=== PATIENT | male | born 1950 | race Caucasian/White ===

== ENCOUNTER 2017-12-16 08:03 | Day surgery (SDC) | payer OTHER ==
[2017-12-07 18:19] VITALS: BMI 21.4
--- NOTE | 2017-12-16 07:30 | HP ---
History & Physical Update - History History: No Change - Physical Physical: No Change - Assessment Assessment: No Change - Plan Plan: No Change (Initial H&P completed 11/25/17. No new complaints or medications. C/o LBP with radiation to RLE)
[2017-12-16] MEDS ORDERED: CEFAZOLIN 1 GM in DEXTROSE 5%-WATER - 100 ML IVPB ONE (08:55)
[2017-12-16] MEDS ORDERED: oxyCODONE HCL 10 MG SUSTAINED ACTING TABLET PO STA (08:55)
[2017-12-16] MEDS ORDERED: MIDAZOLAM HCL 2 MG/2 ML SINGLE DOSE VIAL ONE ×2 (10:48→11:38)
[2017-12-16] MEDS ORDERED: BUPIVACAINE HCL/PF (5 MG/ML) 30 ML VIAL IJ ONE (10:49)
[2017-12-16] MEDS ORDERED: THROMBIN (BOVINE) 5,000 UNIT VIAL TP ONE ×2 (11:07→11:53)
[2017-12-16] MEDS ORDERED: LIDOCAINE 1%/EPI 1:100000 (20 ML MULTI DOSE VIAL) ONE (11:07)
[2017-12-16] MEDS ORDERED: methylPREDNISolone ACET (DEPO) 40 MG/1 ML VIAL ONE (11:07)
[2017-12-16] MEDS ORDERED: LIDOCAINE 1%/EPI 1:100000 (50 ML MULTI DOSE VIAL) INF ONE (11:30)
[2017-12-16] MEDS ORDERED: DEXAMETHASONE SOD PHOSPHATE 4 MG/1 ML VIAL ONE (11:39)
[2017-12-16] MEDS ORDERED: ONDANSETRON 4 MG/2 ML VIAL ONE (11:39)
[2017-12-16] MEDS ORDERED: ceFAZolin SODIUM 1 GM VIAL ONE (11:39)
[2017-12-16] MEDS ORDERED: GELATIN SPONGE,ABSORBABLE 1 GM PACKET TP ONE (11:54)
[2017-12-16] MEDS ORDERED: methylPREDNISolone ACET (DEPO) 40 MG/1 ML VIAL IM ONE (12:27)
--- NOTE | 2017-12-16 12:46 | OP ---
Operative Note - Note: Operative Date: 12/16/17 Pre-Operative Diagnosis: L4-S1 spinal stenosis with radiculopathy Operation: L4-S1 bilateral laminectomy Post-Operative Diagnosis: Same as Pre-op Surgeon: Ramirez Mckenna Spray Mixer: Alvin Crawford Anesthesiologist/PMO BUSINESS ANALYST: Bart Crespo Anesthesia: Spinal Estimated Blood Loss (mls): 10 Fluid Volume Replaced (mls): 700 Operative Report Dictated: Yes
[2017-12-16] MEDS ORDERED: PROMETHAZINE HCL 25 MG/1 ML VIAL IVPB PRN (12:47)
[2017-12-16] MEDS ORDERED: oxyCODONE HCL 5 MG TABLET PO PRN ×2 (12:47)
[2017-12-16] MEDS ORDERED: ONDANSETRON 4 MG/2 ML VIAL IVPUSH PRN (12:47)
--- NOTE | 2017-12-16 12:47 | SURG ---
Surgery Wedger And Gluer Note Wedger And Gluer: Alvin Crawford PA-C Date of Service: 12/16/17 Diagnosis: L4-S1 spinal stenosis with radiculopathy Procedure: L4-S1 Bilateral laminectomy I was present for the entirety of the operative procedure. For further detail, please refer to operative report. Visit type - Case Type Case Type: Scheduled - New patient This patient is new to me today: Yes Date on this admission: 12/16/17
--- NOTE | 2017-12-16 14:14 | OP ---
DATE OF OPERATION: 12/16/2017 PREOPERATIVE DIAGNOSIS: Spinal stenosis, L4-5, L5-S1. POSTOPERATIVE DIAGNOSIS: Spinal stenosis, L4-5, L5-S1. PROCEDURE PERFORMED: Laminectomy, L4-5 and L5-S1. SURGEON: Ramirez Mckenna MD TUBULAR PRODUCTS FABRICATOR: LEILA Hidalgo ESTIMATED BLOOD LOSS: 50 mL. IV FLUIDS: Per Anesthesia. ANESTHESIA: Spinal/TLIP. COMPLICATIONS: There were none. DISPOSITION: Patient brought to the PACU in stable condition. INDICATION FOR SURGERY: The patient is a 67-year-old gentleman who has been suffering from pain from his back down his leg. X-rays and MRI were completed, which showed that he had spinal stenosis from L4 down to S1. He had gone through an exhaustive course of treatment for this, which included medications, physical therapy, as well as injections. Unfortunately, his pain continued to persist despite all this. At this point, risks, benefits, and alternatives were discussed and the patient consented to surgery. OPERATIVE NOTE: The patient was brought to the operating room by the anesthesia staff. After appropriate patient identification was performed, spinal anesthesia was given. A TLIP block was also given. The patient was able to position himself prone onto the OR table, with all areas of bony prominences well padded. At this time, 2 needles were placed into his back to cipriano off the L4 to S1 levels. X-rays taken to confirm this was correct. [place] removed and 10 mL of lidocaine with epinephrine was injected into his back at this time. His back was prepped and draped in a sterile manner. At this point, timeout was completed. An incision was made from the top of L4 down to the bottom of S1. Dissection was carried down to the fascia. The fascia was split open at this time. Appropriate retractors were then placed in. A spinal needle was placed onto the lamina of L5. X-rays taken to confirm this was correct. The needle was removed and the interspinous ligament at L4-5 and L5-S1 were removed. The spinous process of L5 was removed. The remaining portion of the L5 lamina were removed. The flavum was identified. It was removed. A complete decompression was performed such that, by the end of the procedure, the L5-S1 nerve roots appeared to be well decompressed. All bleeding was well controlled at this time. Steroid was placed over the nerve root, FloSeal was placed over that. The fascia was closed with a number 1 Vicryl suture. The subcutaneous tissues were closed with 2-0 Vicryl suture. Skin was closed with 3-0 Monocryl suture. Dermabond was applied, Steri-Strips were applied, a sterile dressing was applied. The patient was placed supine on the OR bed and brought to the PACU in stable condition. Isaac FREEMAN/[id number]
[2017-12-16 15:12] VITALS: BP 122/67; PULSE 51; TEMP 97.8
== END 2017-12-16 14:40 | disposition home or self-care (01) ==
LOC: FASU 08:03
PROVIDERS: ATTEND Orthopaedic Surgery Orthopaedic Surgery of the Spine
PROC: 01NB0ZZ Release Lumbar Nerve, Open Approach (ICD-10-PCS; principal; 2017-12-16 11:49)
DX: M48.061 Spinal stenosis, lumbar region without neurogenic claudication (principal); M48.07 Spinal stenosis, lumbosacral region
CPT/HCPCS: 72100-TC-FY; 94760

== ENCOUNTER 2017-12-20 10:59 | Emergency (ER) | payer OTHER ==
[2017-12-20] MEDS ORDERED: KETOROLAC TROMETHAMINE 30 MG/1 ML VIAL IVPUSH ONE (11:08)
[2017-12-20] MEDS ORDERED: METOCLOPRAMIDE HCL INJECTION 10 MG/2 ML VIAL IVPUSH ONE (11:08)
[2017-12-20] MEDS ORDERED: SODIUM CHLORIDE 500 ML IV STA (11:09)
[2017-12-20] MEDS ORDERED: KETOROLAC TROMETHAMINE 30 MG/1 ML VIAL ONE (11:21)
--- NOTE | 2017-12-20 11:22 | PDOC ---
History of Present Illness - General Chief Complaint: Headache Stated Complaint: headache Time Seen by Provider: 12/20/17 11:07 - History of Present Illness Initial Comments: 12/20/17 12:12 The patient is a 67 year old male with a history of spinal stenosis who presents for evaluation of headache. The patient is accompanied by family who assist in providing the history. They note that the patient had a recent lamenectomy 4 days ago. They state that the patient had no pain after the surgery, however, the patient developed a pressure like headache 3 days ago that has been persistent with associated photophobia, phonophobia, nausea, and one episode of non-bilious, non-bloody vomiting prompting his presentation to the ED for further evaluation. The patient otherwise denies fevers, chills, SOB , chest pain, abdominal pain, numbness, tingling, weakness, or changes with urination or bowel movements. Past History - Past Medical History Allergies/Adverse Reactions: Allergies Allergy/AdvReac Type Severity Reaction Status Date / Time No Known Allergies Allergy Verified 12/20/17 11:14 Home Medications: Ambulatory Orders Diazepam [Valium] 2 mg PO TID PRN #24 tablet MDD 3 12/16/17 Hydrocodone/Acetaminophen [Vicodin 5-300 mg Tablet] 1 each PO Q6H PRN #8 tablet MDD 4 12/16/17 Tramadol HCl 50 mg PO Q6H PRN #30 tablet MDD 4 12/16/17 Metoclopramide HCl [Reglan -] 10 mg PO TID #21 tablet 12/20/17 Anemia: No Asthma: No Cancer: No Cardiac Disorders: No CVA: No COPD: No CHF: No DVT: No Dementia: No Diabetes: No GI Disorders: No Disorders: No HTN: No Hypercholesterolemia: No Liver Disease: No Seizures: No Thyroid Disease: No - Surgical History Abdominal Surgery: Yes (hernia repair) Appendectomy: No Cardiac Surgery: No Cholecystectomy: No Lung Surgery: No Neurologic Surgery: No Orthopedic Surgery: No - Suicide/Smoking/Psychosocial Hx Smoking History: Never smoked Have you smoked in the past 12 months: No Hx Alcohol Use: No Drug/Substance Use Hx: No Substance Use Type: None Review of Systems - Review of Systems Comments:: 12/20/17 12:15 Constitutional: No fevers, chills, fatigue, malaise HEENT: No Rhinorrhea, nasal congestion, visual changes Cardiovascular: No chest pain, syncope, palpitations, lightheadedness Respiratory: No Cough, SOB, Hemoptysis, Gastrointestinal: Nausea, vomiting. No Abdominal pain, Constipation, Diarrhea, Melena Genitourinary: No Dysuria, Frequency, Urgency, Hesitancy, Hematuria, Flank pain Musculoskeletal: No Myalgia, arthralgia Skin: No rashes, itching, bruising, pallor Neurologic: Headache. Photophobia, Phonophobia. No Dizziness, Numbness, Weakness , or Tingling Psychiatric: No Hallucinations. No SI or HI *Physical Exam - Vital Signs Last Vital Signs Temp Pulse Resp BP Pulse Ox 0/0 12/20/17 10:59 - Physical Exam Comments: 12/20/17 12:15 General Appearance: Nourished. No Apparent Distress HEENT: EOMI, TAPAN. No Pharyngeal Erythema, Tonsillar Exudate, Tonsillar Erythema Neck: No Cervical Lymphadenopathy Respiratory/Chest: Lungs Clear, Normal Breath Sounds. No Crackles, Rales, Rhonchi, Wheezing Cardiovascular: Regular Rhythm, Regular Rate. No Murmur, Gallops, Rubs Gastrointestinal/Abdominal: Normal Bowel Sounds, Soft. No Guarding, Rebound, Tenderness Musculoskeletal: No CVA Tenderness Extremity: Normal Capillary Refill Integumentary: Normal Color, Dry, Warm Neurologic: insurance sales producer II-XII NML intact, Fully Oriented, Alert, Normal Mood/Affect, Normal Response, Motor Strength 5/5. Medical Decision Making - Medical Decision Making 12/20/17 12:17 The patient is a 67 year old male with a history of spinal stenosis who presents for evaluation of headache. Dr. Ward the patient's surgeon evaluated the patient here in the ED and believes that a dural tear is unlikely. Given the patient's history and physical exam, we will obtain a head CT to evaluate further. We will treat the patient with iv fluids, benadryl, reglan, toradol in the meantime and continue to monitor and reassess while here in the ED. 12/20/17 12:[address] is unremarkable as read by our radiologist. The patient reports significant improvement in his symptoms. We are comfortable discharging the patient home with primary care provider follow up. We discussed the results, plan, and return precautions with the patient and his family who voiced understanding and is agreeable with the plan. The patient is ambulating without difficulty. *DC/Admit/Observation/Transfer Diagnosis at time of Disposition: Headache Qualifiers: Headache type: unspecified Headache chronicity pattern: unspecified pattern Intractability: not intractable Qualified Code(s): R51 - Headache - Discharge Dispostion Disposition: HOME Condition at time of disposition: Stable - Prescriptions Prescriptions: Metoclopramide HCl [Reglan -] 10 mg PO TID #21 tablet - Referrals - Patient Instructions Printed Discharge Instructions: DI for Headache Additional Instructions: Please return to the ER if you experience concerning or worsening symptoms including worsening headache, fevers, chills, weakness, chest pain. Your Head CT results were normal here in the ER. We have sent a prescription to your pharmacy for reglan that you may use should you experience nausea vomiting or headache. Please also use your percocet as needed to manage your pain. Please call to schedule a follow up appointment with your primary care provider within 2-3 days to discuss your ER visit and further management of your symptoms. - Post Discharge Activity
[2017-12-20 11:47] VITALS: TEMP 98.4; BMI 20.2
[2017-12-20 12:57] VITALS: BP 120/76; PULSE 52
--- NOTE | 2017-12-20 14:02 | PDOC ---
Attending Attestation - Resident Resident Name: VannesaGaldino - ED Attending Attestation I have performed the following: I have examined & evaluated the patient, The case was reviewed & discussed with the resident, I agree w/resident's findings & plan - HPI HPI: 12/20/17 14:02 Rota 67 YOM with h/o spinal stenosis s/p L4-S1 bilateral laminectomy on 12/16/17 presenting with headache, nausea and photosensitivity x 2-3 days, with one episode of NBNB emesis. no fever or chills. surgery uncomplicated, no back pain or urinary/abdominal sx. 12/20/17 14:03 - Physicial Exam PE: 12/20/17 14:06 NAD, well appearing, MMM, nl conjunctiva, anicteric; neck supple. lungs clear, RRR, abdomen soft nontender. back midline laminectomy scar, c/d/i with topical strips and dressings in place. HO[place] x4, no focal neuro deficits. strength in all extrem 5/5, SILT. CN II-XII intact. gait stable. No peripheral edema. normal color for ethnicity, WWP. no purulence or drainage or erythema at site of incision. - Medical Decision Making 12/20/17 14:03 Rota 67 YOM with h/o spinal stenosis s/p L4-S1 bilateral laminectomy on 12/16/17 presenting with headache, nausea and photosensitivity x 2-3 days, with one episode of NBNB emesis. no fever or chills. surgery uncomplicated, no back pain or urinary/abdominal sx. DDx. dural tear, CSF leak, intra cranial mass, CVA< dehydration, migraine, tension headache, cluster headache. doubt IRRIGATING PUMP OPERATOR infection. no meningeal signs. vitals wnl, no fevers. given toradol, benadryl, reglan and IVF with relief. no focal neuro deficits, ambulatory and much improved. CT head neg for bleed or mass. laminectomy site c/d/i with topical steri strips and dressings in place, no drainage. seen by primary neurosurgeon here, agrees with plan. Rx reglan prn nausea and headache/ may also take percocet for back pain, which may be precipitant. given IVF in case of dural leak here. otherwise doubt IRRIGATING PUMP OPERATOR infection or CVA with neg Head CT and reassuring reevaluation. family comfortable with plan outlined, adequate rest and hydration encouraged and pain control. Pt to be discharged in stable condition. Patient and family made aware of impression and plan, return precautions discussed (including but not limited to worsening pain or symptoms), fevers, or signs of infection, chest pain, respiratory distress, inability to tolerate oral intake, dehydration, syncope, or neurologic changes). Follow up with PMD and/or specialist as recommended, follow up information provided, take medications as instructed for duration of time. continue with supportive care, avoid triggers and precipitants. All questions answered to patient's satisfaction and expressed understanding and comfort with this. 12/20/17 14:07
== END 2017-12-20 12:57 | disposition home or self-care (01) ==
LOC: FER 10:59
PROC: 3E033GC Introduction of Other Therapeutic Substance into Peripheral Vein, Percutaneous Approach (ICD-10-PCS; principal; 2017-12-20)
PROC: 3E0333Z Introduction of Anti-inflammatory into Peripheral Vein, Percutaneous Approach (ICD-10-PCS; 2017-12-20)
PROC: 3E0337Z Introduction of Electrolytic and Water Balance Substance into Peripheral Vein, Percutaneous Approach (ICD-10-PCS; 2017-12-20)
DX: R51 Headache (principal)
CPT/HCPCS: 70450-TC; 99281-25

== ENCOUNTER 2020-06-18 13:14 | Emergency (ER) | payer OTHER ==
[2020-06-18 13:32] VITALS: PULSE 55; BMI 24.5
[2020-06-18] MEDS ORDERED: LACTATED RINGERS SOLUTION 1000 ML INFUS.BAG IV ONE (14:00)
[2020-06-18] MEDS ORDERED: METOCLOPRAMIDE HCL INJECTION 10 MG/2 ML VIAL IVPUSH ONE (14:14)
[2020-06-18] MEDS ORDERED: METOCLOPRAMIDE HCL INJECTION 10 MG/2 ML VIAL ONE (14:18)
[2020-06-18 14:54] LABS: BASO % 0.7 % (0-2.0); EOS % 0.1 % (0-4.5); HEMATOCRIT 39.9 % (35.4-49); HEMOGLOBIN 13.1 GM/dL (11.7-16.9); LYMPH % 12.2 % (8-40); MCH 29.8 pg (25.7-33.7); MCHC 32.9 g/dl (32.0-35.9); MEAN CELL VOLUME 90.4 fl (80-96); MONO % 3.4 % (3.8-10.2); NEUT % 83.6 % (42.8-82.8); PLATELET COUNT 176 K/MM3 (134-434); RBC 4.42 M/mm3 (4.00-5.60); RDW 13.1 % (11.9-15.9); WHITE BLOOD COUNT 5.2 K/mm3 (4.0-10.0)
[2020-06-18] MEDS ORDERED: MECLIZINE HCL 25 MG TABLET (FP) PO ONE (15:03)
[2020-06-18 15:21] LABS: CHLORIDE 105 mmol/L (98-107); POTASSIUM 4.1 mmol/L (3.5-5.1); SODIUM 139 mmol/L (136-145)
[2020-06-18 15:23] LABS: ALBUMIN 3.8 g/dl (3.4-5.0); CALCIUM 9.3 mg/dL (8.5-10.1)
[2020-06-18 15:24] LABS: ANION GAP 8 MMOL/L (8-16); BLOOD UREA NITROGEN 19.7 mg/dL (7-18); CO2 26 mmol/L (21-32); GLUCOSE,RANDOM 132 mg/dL (74-106); LIPASE 221 U/L (73-393)
[2020-06-18 15:26] LABS: SGPT/ALT 23 U/L (13-61)
[2020-06-18 15:27] LABS: CREATININE 1.2 mg/dL (0.55-1.3); SGOT/AST 18 U/L (15-37)
[2020-06-18 15:28] LABS: BILIRUBIN,TOTAL 0.7 mg/dL (0.2-1); TOT PROT 7.5 g/dl (6.4-8.2)
[2020-06-18 15:30] LABS: ALK PHOS 62 U/L (45-117)
[2020-06-18] MEDS ORDERED: MECLIZINE HCL 25 MG TABLET (FP) ONE (15:31)
[2020-06-18 18:35] VITALS: BP 116/65; TEMP 98
== END 2020-06-18 18:30 | disposition home or self-care (01) ==
LOC: JER 13:14
PROC: 3E03329 Introduction of Other Anti-infective into Peripheral Vein, Percutaneous Approach (ICD-10-PCS; principal; 2020-06-18)
PROC: 3E033GC Introduction of Other Therapeutic Substance into Peripheral Vein, Percutaneous Approach (ICD-10-PCS; 2020-06-18)
PROC: 3E033NZ Introduction of Analgesics, Hypnotics, Sedatives into Peripheral Vein, Percutaneous Approach (ICD-10-PCS; 2020-06-18)
PROC: 3E0333Z Introduction of Anti-inflammatory into Peripheral Vein, Percutaneous Approach (ICD-10-PCS; 2020-06-18)
PROC: 3E033GC Introduction of Other Therapeutic Substance into Peripheral Vein, Percutaneous Approach (ICD-10-PCS; 2020-06-18)
PROC: 3E033GC Introduction of Other Therapeutic Substance into Peripheral Vein, Percutaneous Approach (ICD-10-PCS; 2020-06-18)
DX: R42 Dizziness and giddiness (principal); R11.10 Vomiting, unspecified
CPT/HCPCS: 36415; 70450-TC; 71045-TC-FY; 80053; 83690; 84484; 85025; 93005; 93010; 99285-25; C9803; U0003